=== PATIENT | male | born 1980 | race Caucasian/White ===

== ENCOUNTER 2019-08-18 12:21 | Emergency (ER) | payer MEDICAID, SELFPAY ==
[~2019-08-18] VITALS: Ht 170.2 cm; Wt 74.8 kg
[2019-08-18 12:26] VITALS: Ht 170.2 cm; Wt 74.8 kg
[2019-08-18 13:37] VITALS: BP 131/81
== END 2019-08-18 13:37 | disposition home or self-care (01) ==
LOC: ED 12:21
DX: U07.1 COVID-19 (principal); J06.9 Acute upper respiratory infection, unspecified
CPT/HCPCS: U0003-CS

== ENCOUNTER 2019-09-27 12:17 | Emergency (ER) | payer MEDICAID ==
[~2019-09-27] VITALS: Ht 170.2 cm; Wt 895.4 kg
[2019-09-27 12:26] VITALS: Ht 170.2 cm; Wt 895.4 kg
[2019-09-27 13:52] VITALS: BP 131/76
== END 2019-09-27 13:52 | disposition home or self-care (01) ==
LOC: ED 12:17
DX: F41.9 Anxiety disorder, unspecified (principal); Z90.89 Acquired absence of other organs